=== PATIENT | male | born 1995 | race Hispanic/Latino ===

== ENCOUNTER 2019-10-10 16:32 | Emergency (ER) | payer SELFPAY ==
[2019-10-10] MEDS ORDERED: ZOSYN 3.375GM+NS 50ML 50 ML IV ONE (17:27)
[2019-10-10] MEDS ORDERED: SODIUM CHLORIDE 0.9% 1000ML 1,000 ML IV ONE (18:54)
[2019-10-10] MEDS ORDERED: INSULIN HUMULIN R 100 UNIT/ML 3ML ONE (18:54)
[2019-10-10] MEDS ORDERED: MORPHINE SULFATE 4 MG/1ML SYG ONE (20:59)
[2019-10-10] MEDS ORDERED: ONDANSETRON HCL 4 MG/2 ML VIAL ONE (20:59)
== END 2019-10-10 22:13 | disposition home or self-care (01) ==
LOC: EDH 16:32
DX: E11.621 Type 2 diabetes mellitus with foot ulcer (principal); E11.65 Type 2 diabetes mellitus with hyperglycemia; M79.671 Pain in right foot; Z72.0 Tobacco use
CPT/HCPCS: 36415; 71045; 73630; 80053; 81001; 82550; 82948; 83605; 83874; 84145; 84484; 85025; 85610; 85651; 85730; 87040; 87070; 87076; 87088; 93005; 96365; 96366; 96375; 99285; J1815; J2270; J2405; J2543; J7030

== ENCOUNTER 2023-04-05 20:15 | Emergency (ER) | payer OTHER ==
[~2023-04-05] VITALS: Ht 167.6 cm; Wt 70.8 kg
[2023-04-05] MEDS ORDERED: 0.9%NACL 1000ML 1,000 ML IV ONE (22:00)
[2023-04-05 22:08] LABS: BASOPHILS # (AUTO) 0.02 K/uL (0.00-0.20); BASOPHILS % (AUTO) 0.2 % (0.0-5.0); EOSINOPHILS # (AUTO) 0.11 K/uL (0.00-0.70); HEMATOCRIT 42.9 % (42-54); IMMATURE GRANULOCYTE ABSOLUTE 0.03 K/uL (0-1); LYMPHOCYTES # (AUTO) 3.2 K/uL (1.0-4.8); LYMPHOCYTES % (AUTO) 28.2 % (21.0-51.0); MEAN CORPUSCULAR HGB CONC 35.4 g/dL (32.0-36.0); MEAN CORPUSCULAR VOLUME 81.7 fL (79-99); MONOCYTES # (AUTO) 0.7 K/uL (0.1-1.0); MONOCYTES % (AUTO) 6.2 % (3.0-13.0); NEUTROPHILS # (AUTO) 7.2 K/uL (1.8-7.7); NEUTROPHILS % (AUTO) 64.1 % (40.0-77.0); PLATELET COUNT (AUTO) 146 K/uL (130-400); RED BLOOD CELL COUNT(AUTO) 5.25 MIL/uL (4.50-6.20); RED CELL DISTRIBUTION WIDTH 11.9 % (11.0-15.5); WHITE BLOOD COUNT (AUTO) 11.2 K/uL (4.8-10.8)
[2023-04-05 22:32] LABS: ALBUMIN 2.9 g/dL (3.5-5.0); BILIRUBIN,TOTAL 0.3 mg/dL (0.2-1.0); CREATININE 1.6 mg/dL (0.5-1.5); POTASSIUM 3.6 mmol/L (3.5-5.1); TOTAL PROTEIN, SERUM 7.1 g/dL (6.0-8.3)
[2023-04-05] MEDS ORDERED: INSULIN HUMULIN R 100 UNIT/ML 3ML SQ ONE (23:00)
[2023-04-05 23:03] LABS: THYROID STIMULATING HORMONE 1.21 uIU/mL (0.36-3.74)
[2023-04-06 01:08] LABS: ABG BASE EXCESS 1.8 mmol/L (-2.0-3.0); ABG HCO3 26.4 mmol/L (21.0-28.0); ABG OXYGEN SATURATION 96.1 % (95.0-99.0); ABG PCO2 42 mmHg (35-48); ABG PH 7.422 (7.350-7.450); VENT MODE, BG ROOMAIR (ROOM AIR)
[2023-04-06 01:50] VITALS: BP 122/72; PULSE 68; RESP 16; O2SAT 100
[2023-04-06 02:00] LABS: CREATININE 1.4 mg/dL (0.5-1.5); POTASSIUM 3.5 mmol/L (3.5-5.1)
== END 2023-04-06 01:52 | disposition home or self-care (01) ==
LOC: EDH 20:15
DX: R73.9 Hyperglycemia, unspecified (principal); Z91.199 Patient's noncompliance with other medical treatment and regimen due to unspecified reason; R53.1 Weakness
CPT/HCPCS: 99283; 96360; 96361; 84443; 83735; 80053; 82803; 85025; 82948; 82010; 36415 ×2; 96372; 36600; 80048; J1815; J7030

== ENCOUNTER 2023-07-30 01:30 | Inpatient (IN) | payer OTHER ==
[2023-07-30] VITALS (8 sets, daily range): BP systolic 114–160; BP diastolic 63–105; PULSE 101–110; RESP 17–20; TEMP 98.4; O2SAT 97–98
[~2023-07-30] VITALS: Ht 165.1 cm; Wt 65.3 kg
[2023-07-30 02:08] LABS: BASOPHILS # (AUTO) 0.04 K/uL (0.00-0.20); BASOPHILS % (AUTO) 0.3 % (0.0-5.0); EOSINOPHILS # (AUTO) 0.28 K/uL (0.00-0.70); EOSINOPHILS % (AUTO) 2.4 % (0.0-8.0); HEMATOCRIT 36.7 % (42-54); IMMATURE GRANULOCYTE ABSOLUTE 0.03 K/uL (0-1); LYMPHOCYTES # (AUTO) 3.8 K/uL (1.0-4.8); LYMPHOCYTES % (AUTO) 32.3 % (21.0-51.0); MEAN CORPUSCULAR HEMOGLOBIN 28.5 pg (27.0-33.0); MEAN CORPUSCULAR HGB CONC 34.6 g/dL (32.0-36.0); MEAN CORPUSCULAR VOLUME 82.3 fL (79-99); NEUTROPHILS # (AUTO) 6.7 K/uL (1.8-7.7); NEUTROPHILS % (AUTO) 56.7 % (40.0-77.0); PLATELET COUNT (AUTO) 173 K/uL (130-400); RED BLOOD CELL COUNT(AUTO) 4.46 MIL/uL (4.50-6.20); RED CELL DISTRIBUTION WIDTH 12.1 % (11.0-15.5); WHITE BLOOD COUNT (AUTO) 11.9 K/uL (4.8-10.8)
[2023-07-30 02:19] LABS: CREATININE 2.4 mg/dL (0.5-1.3)
[2023-07-30] MEDS: 0.9%NACL 1000ML 1,000 ML IV ONE (02:20)
[2023-07-30 02:28] LABS: ALBUMIN 2.6 g/dL (3.5-5.0); BILIRUBIN,TOTAL 0.1 mg/dL (0.2-1.0); TOTAL PROTEIN, SERUM 6.2 g/dL (6.0-8.3)
[2023-07-30] MEDS ORDERED: DiphenhydrAMINE HCL 50 MG/ML VIAL IV PRN (04:00)
[2023-07-30] MEDS ORDERED: MAG/ALUM/SIMETH 30 ML UDCUP PO PRN (04:00)
[2023-07-30] MEDS ORDERED: LACTULOSE 20 GM/30 ML UDCUP PO PRN (04:00)
[2023-07-30] MEDS ORDERED: FAMOTIDINE 20MG VIAL IV PRN (04:00)
[2023-07-30] MEDS ORDERED: POTASSIUM CHLORIDE 10MEQ/100ML 100 ML IV PRN (04:00)
[2023-07-30] MEDS ORDERED: ONDANSETRON 4MG INJ IV PRN (04:00)
[2023-07-30] MEDS ORDERED: POTASSIUM CHLORIDE 10% ELIXIR 20 MEQ/15 ML UDCUP PO PRN (04:00)
[2023-07-30] MEDS ORDERED: GUAIFENESIN-DM 200/20 MG 10 ML PO PRN (04:00)
[2023-07-30] MEDS ORDERED: ACETAMINOPHEN 325 MG TAB PO PRN ×2 (04:00)
[2023-07-30] MEDS ORDERED: NITROGLYCERIN 0.4 MG SL TAB SL PRN (04:00)
[2023-07-30] MEDS ORDERED: KCL 20 MEQ ERTAB PO PRN (04:00)
[2023-07-30] MEDS: 0.9%NACL 1000ML 1,000 ML IV SCH (04:12)
[2023-07-30 04:29] LABS: INR <= 0.93 (0.85-1.15); PROTHROMBIN TIME 10.2 SEC (9.6-11.6)
[2023-07-30 04:30] LABS: PARTIAL THROMBOPLASTIN TIME 25.4 SEC (26.3-35.5)
[2023-07-30 04:42] LABS: HEMATOCRIT 33.3 % (42-54); MEAN CORPUSCULAR HEMOGLOBIN 28.5 pg (27.0-33.0); MEAN CORPUSCULAR HGB CONC 34.5 g/dL (32.0-36.0); MEAN CORPUSCULAR VOLUME 82.4 fL (79-99); RED BLOOD CELL COUNT(AUTO) 4.04 MIL/uL (4.50-6.20); RED CELL DISTRIBUTION WIDTH 12.2 % (11.0-15.5); WHITE BLOOD COUNT (AUTO) 13.7 K/uL (4.8-10.8)
[2023-07-30 04:51] LABS: HEMOGLOBIN A1C 12.4 % (4.0-6.0)
[2023-07-30 04:57] LABS: D-DIMER 253 ng/mL (0-500)
[2023-07-30 05:18] LABS: ALBUMIN 2.5 g/dL (3.5-5.0); BILIRUBIN,DIRECT < 0.1 mg/dL (0.0-0.3); GLOMERULAR FILTR. RATE CALC 44 mL/min (>90); TOTAL PROTEIN, SERUM 5.8 g/dL (6.0-8.3)
[2023-07-30] MEDS ORDERED: INSU100V3 SQ (05:21)
[2023-07-30] MEDS ORDERED: PREG150C47 PO (05:21)
[2023-07-30 05:48] LABS: ALANINE AMINOTRANSFERASE 12 U/L (12-78); AMMONIA 21 umol/L (11-32); ASPARTATE AMINOTRANSFERASE 11 U/L (10-37); BILIRUBIN,TOTAL 0.1 mg/dL (0.2-1.0); CARBON DIOXIDE 28 mmol/L (21-32); CHLORIDE 101 mmol/L (101-111); CREATININE 2.1 mg/dL (0.5-1.3); GLUCOSE,RANDOM 331 mg/dL (70-105); POTASSIUM 4.2 mmol/L (3.5-5.1); SODIUM SERUM 137 mmol/L (136-145); UREA NITROGEN, BLOOD 27 mg/dL (7-18)
[2023-07-30 06:09] LABS: AMPHET/METH SCREEN,URINE NEGATIVE (NEGATIVE); BARBITURATE SCREEN, URINE NEGATIVE (NEGATIVE); BENZODIAZEPINES SCREEN,URINE NEGATIVE (NEGATIVE); CANNABINOID SCREEN,URINE POSITIVE (NEGATIVE); COCAINE SCREEN,URINE NEGATIVE (NEGATIVE); OPIATE SCREEN,URINE NEGATIVE (NEGATIVE); PHENCYCLIDINE SCREEN,URINE NEGATIVE (NEGATIVE)
[2023-07-30 06:10] LABS: APPEARANCE,URINE CLEAR (CLEAR); BACTERIA,URINE RARE /HPF (None Seen); BILIRUBIN,URINE NEGATIVE (NEGATIVE); COLOR,URINE LIGHT-YELLOW (YELLOW); GLUCOSE, URINE (UA) >=1000 mg/dL (NEGATIVE); KETONES,URINE NEGATIVE (NEGATIVE); LEUKOCYTE ESTERASE ,URINE NEGATIVE Leu/uL (NEGATIVE); MUCUS,URINE RARE LPF (None Seen); NITRATE,URINE NEGATIVE (NEGATIVE); OCCULT BLOOD,URINE SMALL (NEGATIVE); PH,URINE 5.5 (5.0-8.0); PROTEIN,URINE 200 mg/dL (NEGATIVE); SQUAMOUS EPITHELIAL CELL,UR RARE /HPF (0-2); UROBILINOGEN,URINE 0.2 mg/dL (0.2-1.0)
[2023-07-30] MEDS: INSULIN HUMULIN R 100 UNIT/ML 3ML SQ SCH ×2 (06:55→11:49)
[2023-07-30] MEDS ORDERED: POTASSIUM CHLORIDE 10MEQ SR TAB PO PRN (07:00)
[2023-07-30] MEDS: MAGNESIUM 2GM PREMIX 50ML 50 ML IV PRN (08:18)
[2023-07-30] MEDS: FAMOTIDINE 20MG VIAL IV SCH (08:19)
[2023-07-30] MEDS: HEPARIN 5,000 UNIT VIAL SQ SCH (08:27)
[2023-07-30] MEDS: CEFTRIAXONE 1G VIAL IVPB SCH (08:37)
[2023-07-30] MEDS: ACETAMINOPHEN 325 MG TAB PO PRN (12:00)
[2023-07-30] MEDS: KETOROLAC 15MG/ML VIAL (15MG/ML) IM PRN (13:16)
[2023-07-30] MEDS: DEXTROSE 5%-WATER 1,000 ML IV SCH (17:14)
[2023-07-30] MEDS: ALPRAZOLAM 0.5 MG TABLET PO ONE (20:08)
[2023-07-30] MEDS: INSULIN GLARGINE 100 UNITS/ML 10 ML VIAL SQ SCH (20:10)
[2023-07-31] VITALS (8 sets, daily range): BP systolic 129–173; BP diastolic 71–106; PULSE 84–139; RESP 16–21; O2SAT 96–97
[2023-07-31 09:07] LABS: BASOPHILS # (AUTO) 0.03 K/uL (0.00-0.20); BASOPHILS % (AUTO) 0.4 % (0.0-5.0); EOSINOPHILS # (AUTO) 0.25 K/uL (0.00-0.70); EOSINOPHILS % (AUTO) 2.9 % (0.0-8.0); HEMATOCRIT 37.7 % (42-54); IMMATURE GRANULOCYTE ABSOLUTE 0.02 K/uL (0-1); LYMPHOCYTES # (AUTO) 2.8 K/uL (1.0-4.8); LYMPHOCYTES % (AUTO) 32.7 % (21.0-51.0); MEAN CORPUSCULAR HEMOGLOBIN 28.4 pg (27.0-33.0); MEAN CORPUSCULAR VOLUME 83.8 fL (79-99); MONOCYTES # (AUTO) 0.7 K/uL (0.1-1.0); MONOCYTES % (AUTO) 8.2 % (3.0-13.0); NEUTROPHILS # (AUTO) 4.7 K/uL (1.8-7.7); NEUTROPHILS % (AUTO) 55.6 % (40.0-77.0); PLATELET COUNT (AUTO) 176 K/uL (130-400); WHITE BLOOD COUNT (AUTO) 8.5 K/uL (4.8-10.8)
[2023-07-31 09:34] LABS: ALBUMIN 2.6 g/dL (3.5-5.0); BILIRUBIN,TOTAL 0.2 mg/dL (0.2-1.0); CREATININE 1.5 mg/dL (0.5-1.3); POTASSIUM 3.9 mmol/L (3.5-5.1); TOTAL PROTEIN, SERUM 6.2 g/dL (6.0-8.3)
[2023-07-31] MEDS: HYDRALAZINE 20MG/ML VIAL IV PRN (10:19)
[2023-07-31] MEDS: LORAZEPAM 2 MG/ML 1 ML VIAL IVP PRN (18:57)
[2023-07-31] MEDS: AMLODIPINE 5 MG TAB PO SCH (20:28)
[2023-07-31] MEDS: ZOLPIDEM TARTRATE 5 MG TAB PO PRN (21:34)
[2023-08-01 00:28] VITALS: BP 121/68; PULSE 106; RESP 20
[2023-08-01 04:27] VITALS: BP 133/89; PULSE 121; RESP 20
[2023-08-01] MEDS: INSULIN HUMULIN R 100 UNIT/ML 3ML SQ SCH (05:39)
[2023-08-01 08:00] VITALS: O2SAT 98
[2023-08-01 08:43] VITALS: BP 134/65; PULSE 96; RESP 15
[2023-08-01] MEDS: AMLODIPINE 5 MG TAB PO SCH (09:14)
[2023-08-01] MEDS ORDERED: DEXTROSE 50%-WATER 50 ML DISP.SYRIN IV PRN (10:30)
[2023-08-01] MEDS ORDERED: GLUCAGON 1MG KIT 1 MG ML IM PRN (10:30)
[2023-08-01 12:22] VITALS: BP 154/114; PULSE 112; RESP 15
[2023-08-01] MEDS: METOPROLOL TARTRATE 25 MG TAB PO ONE (12:57)
[2023-08-01] MEDS ORDERED: INSULIN HUMULIN R 100 UNIT/ML 3ML SQ SCH (17:00)
[2023-08-01] MEDS ORDERED: METOPROLOL TARTRATE 25 MG TAB PO SCH (21:00)
== END 2023-08-01 13:25 | disposition home or self-care (01) | DRG 641 ==
LOC: EDH 01:30 → OBSVTOIN 01:31 → EDHIP 01:31 → EDH 04:54 → 4CH 05:16
PROVIDERS: ADMIT Hospitalist; ATTEND Hospitalist
DX: E86.0 Dehydration (principal); N17.9 Acute kidney failure, unspecified; E11.40 Type 2 diabetes mellitus with diabetic neuropathy, unspecified; E11.22 Type 2 diabetes mellitus with diabetic chronic kidney disease; H54.61 Unqualified visual loss, right eye, normal vision left eye; E11.65 Type 2 diabetes mellitus with hyperglycemia; F12.90 Cannabis use, unspecified, uncomplicated; N18.9 Chronic kidney disease, unspecified; Z59.7 Insufficient social insurance and welfare support; Z79.4 Long term (current) use of insulin; Z79.899 Other long term (current) drug therapy; Z82.49 Family history of ischemic heart disease and other diseases of the circulatory system; Z83.3 Family history of diabetes mellitus
CPT/HCPCS: 36415; 70450; 71045; 80048; 80053; 80076; 80305; 81001; 82010; 82140; 82306; 82746; 82948; 83036; 83605; 83735; 83880; 84484; 85025; 85027; 85378; 85610; 85651; 85730; 87040; 93005; 93306; 93356; 93880; 96372; G0378; J0360; J0696; J1644; J1815; J1885; J2060; J3475; J3490; A4600